=== PATIENT | female | born 1970 | race Caucasian/White ===

== ENCOUNTER 2018-08-14 16:13 | Emergency (ER) | payer MEDICARE, MEDICAID ==
--- NOTE | 2018-08-14 17:02 | RAD ---
PA AND LATERAL CHEST: HISTORY: Cough. Congestion. FINDINGS: The heart size is normal. The lungs are well expanded without focal areas of consolidation, pneumoth oraces, or pleural effusions. There are degenerative changes in the spine. IMPRESSION: No radiographic evidence of acute cardiopulmonary process. POS: [facility]
== END 2018-08-14 17:22 | disposition home or self-care (01) ==
LOC: ERS 16:13
DX: J20.9 Acute bronchitis, unspecified (principal); F41.9 Anxiety disorder, unspecified; F31.9 Bipolar disorder, unspecified; L08.9 Local infection of the skin and subcutaneous tissue, unspecified; F17.210 Nicotine dependence, cigarettes, uncomplicated; Z79.899 Other long term (current) drug therapy; Z79.51 Long term (current) use of inhaled steroids
CPT/HCPCS: 71046; 87804; 94640; 94760; J7620

== ENCOUNTER 2018-12-26 11:01 | Emergency (ER) | payer MEDICARE, MEDICAID | END 2018-12-26 11:15 | disposition left against medical advice (07) | LOC: ERS 11:01 | DX: Z53.21 Procedure and treatment not carried out due to patient leaving prior to being seen by health care provider (principal) ==

== ENCOUNTER 2020-05-29 00:12 | Emergency (ER) | payer MEDICARE, MEDICAID | END 2020-05-29 01:30 | disposition home or self-care (01) | LOC: ERS 00:12 | DX: F16.10 Hallucinogen abuse, uncomplicated (principal); J45.909 Unspecified asthma, uncomplicated; Z87.891 Personal history of nicotine dependence; Z79.899 Other long term (current) drug therapy | CPT/HCPCS: 99284 ==